=== PATIENT | male | born 1995 | race Hispanic/Latino ===

== ENCOUNTER 2019-12-12 11:11 | Emergency (ER) | payer MEDICAID ==
[2019-12-12 11:35] VITALS: BP 111/72
[2019-12-12] MEDS ORDERED: ALUM-MAG HYDROXIDE-SIMETHICONE 200-200-20MG/5ML ORAL LIQD 30 ML PO ONE (12:13)
[2019-12-12] MEDS ORDERED: PANTOPRAZOLE 40 MG TAB PO ONE (12:13)
[2019-12-12] MEDS ORDERED: ONDANSETRON 4 MG ODT TAB PO ONE (12:13)
--- NOTE | 2019-12-12 12:15 | Emergency Department Report ---
ED General Adult HPI - General Chief complaint: Upper Respiratory Infection Stated complaint: CHEST PAINS Time Seen by Provider: 12/12/19 12:13 Source: patient Mode of arrival: Ambulatory Limitations: No Limitations - History of Present Illness Initial comments: Patient is a 24-year-old male presents emergency room with complaints of a cough that began a few days ago. He states he has associated nausea and post tussive emesis. He states that he is also having acid reflux. He states he feels a burning sensation at the top of the abdomen into the chest and into the throat. He states that he is supposed to be taking Protonix for GERD. He states that because he had not seen his primary care physician in a while that he could not get the prescription. He states that he was incarcerated for 3 months. He denies any fever, night sweats, diarrhea, shortness of breath, chest pain, abdominal pain, hematochezia, hematemesis, melena. He states he is having normal bowel movements. He has a past medical history of Hirschsprung's. No allergies to medications. - Related Data Previous Rx's Medication Instructions Recorded Last Taken Type Pantoprazole [Protonix] 40 mg PO QDAY #30 tablet 12/12/19 Unknown Rx Allergies Allergy/AdvReac Type Severity Reaction Status Date / Time No Known Allergies Allergy Unverified 12/12/19 11:30 ED Review of Systems ROS: Stated complaint: CHEST PAINS Other details as noted in HPI Comment: All other systems reviewed and negative ED Past Medical Hx - Past Medical History Previous Medical History?: Yes Hx GERD: Yes Hx Psychiatric Treatment: Yes (bipolar, anxiety, drepression, schizophrenia) Additional medical history: hirschsprung disease - Surgical History Past Surgical History?: Yes Additional Surgical History: for hirschsprung disease - Social History Smoking Status: Current Every Day Smoker Substance Use Type: None - Medications Home Medications: Home Medications Medication Instructions Recorded Confirmed Last Taken Type Pantoprazole [Protonix] 40 mg PO QDAY #30 tablet 12/12/19 Unknown Rx ED Physical Exam - General Limitations: No Limitations General appearance: alert, in no apparent distress - Head Head exam: Present: atraumatic, normocephalic - Eye Eye exam: Present: normal appearance - ENT ENT exam: Present: mucous membranes moist - Respiratory Respiratory exam: Present: normal lung sounds bilaterally. Absent: respiratory distress, wheezes, rales, rhonchi, stridor, chest wall tenderness, accessory muscle use, decreased breath sounds, prolonged expiratory - Cardiovascular Cardiovascular Exam: Present: regular rate, normal rhythm, normal heart sounds. Absent: systolic murmur, diastolic murmur, rubs, gallop - GI/Abdominal GI/Abdominal exam: Present: soft, normal bowel sounds. Absent: distended, tenderness, guarding, rebound, rigid - Neurological Exam Neurological exam: Present: alert, oriented X3 - Psychiatric Psychiatric exam: Present: normal affect, normal mood - Skin Skin exam: Present: warm, dry, intact ED Course Vital Signs 12/12/19 11:30 Temperature 98.2 F Pulse Rate 86 Respiratory 18 Rate Blood Pressure 111/72 O2 Sat by Pulse 97 Oximetry ED Medical Decision Making - Radiology Data Radiology results: report reviewed Patient: DONNA REESE MR#: [id number] : 1995 Acct:[id number] Age/Sex: 24 / M ADM Date: 12/12/19 Loc: ED Attending Dr: Ordering Physician: RODRIGUEZ DA SILVA Date of Service: 12/12/19 Procedure(s): XR chest routine 2V Accession Number(s): [id number] cc: RODRIGUEZ DA SILVA Fluoro Time In Minutes: CHEST 2 VIEWS INDICATION / CLINICAL INFORMATION: cough. COMPARISON: None available. FINDINGS: SUPPORT DEVICES: None. HEART / MEDIASTINUM: No significant abnormality. LUNGS / PLEURA: No significant pulmonary or pleural abnormality. No pneumothorax. ADDITIONAL FINDINGS: No significant additional findings. IMPRESSION: 1. No acute findings. Signer Name: Leno Orozco MD Signed: 12/12/2019 12:41 PM Workstation Name: [id number] Transcribed By: Dictated By: LENO OROZCO III Electronically Authenticated By: LENO OROZCO III Signed Date/Time: 12/12/19 1241 DD/ 1240 TD/TT: - Medical Decision Making Patient is a 24-year-old male presents emergency room with complaints of a cough that began a few days ago. He states he has associated nausea and post tussive emesis. He states that he is also having acid reflux. He states he feels a burning sensation at the top of the abdomen into the chest and into the throat. He states that he is supposed to be taking Protonix for GERD. He states that because he had not seen his primary care physician in a while that he could not get the prescription. He states that he was incarcerated for 3 months. He denies any fever, night sweats, diarrhea, shortness of breath, chest pain, abdominal pain, hematochezia, hematemesis, melena. He states he is having normal bowel movements. He has a past medical history of Hirschsprung's. No allergies to medications. Vitals are normal. No abnormality on physical examination as documented in chart. Chest x-ray: 1. No acute findings. Symptoms are most likely related to patient's history of GERD. Due to his recent incarceration with a cough x-ray ordered to rule out any lung process, x- ray is within normal limits. Patient given Zofran, Protonix, Maalox while in the emergency department and symptoms improved and he was feeling much better and ready go home. Patient was able to tolerate p.o. intake without difficulty. Discussed all results with patient and answered questions. Patient given prescription for Protonix. Advised patient to please take medication as prescribed. Increase your water intake. Please follow the diet for acid reflux. Follow-up with your primary care doctor. Follow-up with a GI doctor. Return to emergency room for any new or worsening symptoms. Critical care attestation.: If time is entered above; I have spent that time in minutes in the direct care of this critically ill patient, excluding procedure time. ED Disposition Clinical Impression: Cough GERD (gastroesophageal reflux disease) Qualifiers: Esophagitis presence: without esophagitis Qualified Code(s): K21.9 - Gastro- esophageal reflux disease without esophagitis Disposition: DC- TO HOME OR SELFCARE Is pt being admited?: No Does the pt Need Aspirin: No Condition: Stable Instructions: Gastroesophageal Reflux Disease (ED), Diet for Ulcers and Gastritis (ED) Additional Instructions: please take medication as prescribed. Increase your water intake. Please follow the diet for acid reflux. Follow-up with your primary care doctor. Follow-up with a GI doctor. Return to emergency room for any new or worsening symptoms. Prescriptions: Pantoprazole [Protonix] 40 mg PO QDAY #30 tablet Referrals: your, primary care doctor [Other] - 2-3 Days [facility] [Provider Group] - 2-3 Days Time of Disposition: 13:03 Print Language: ALGERIAN
--- NOTE | 2019-12-12 12:46 | XRay Report ---
CHEST 2 VIEWS INDICATION / CLINICAL INFORMATION: cough. COMPARISON: None available. FINDINGS: SUPPORT DEVICES: None. HEART / MEDIASTINUM: No significant abnormality. LUNGS / PLEURA: No significant pulmonary or pleural abnormality. No pneumothorax. ADDITIONAL FINDINGS: No significant additional findings. IMPRESSION: 1. No acute findings. Signer Name: Leno Orozco MD Signed: 12/12/2019 12:41 PM Workstation Name: [id number]
== END 2019-12-12 13:59 | disposition home or self-care (01) ==
LOC: ED 11:11
DX: K21.9 Gastro-esophageal reflux disease without esophagitis (principal); R05 Cough; F41.9 Anxiety disorder, unspecified; F31.9 Bipolar disorder, unspecified; F20.9 Schizophrenia, unspecified; F17.200 Nicotine dependence, unspecified, uncomplicated; Z98.890 Other specified postprocedural states; Z79.899 Other long term (current) drug therapy
CPT/HCPCS: 71046; Q0162